=== PATIENT | female | born 1980 | race American Indian/Alaskan Native ===

== ENCOUNTER 2018-05-21 15:16 | Emergency (ER) | payer BC ==
[2018-05-21 15:16] VITALS: BMI 30.9
[2018-05-21 15:28] VITALS: TEMP 98.4; O2SAT 100
--- NOTE | 2018-05-21 16:07 | C.PDOC ---
History Of Present Illness PGY-[address] Fragoso. 37 year old female presents to ED with complaint of persistent L sided chest pain that began at 10AM today while at work. Pain is located under the left breast, rated 8-9/10, and described as burning/sharp. Pain is associated with L arm numbness and heaviness. Patient denies chest trauma, dizziness, nausea, vomiting, diaphoresis, shortness of breath, palpitations, leg swelling, recent illness, calf pain, fever, chills, recent surgeries, and oral contraceptive use. Patient took Aspirin 325mg x2 prior to arrival to ED. There are no exacerbating or relieving factors noted. PMHx: States she had abnormal thyroid blood work in the past, which has since normalized. No other PMHx. PSHx: 2009, tonsillectomy Meds: none Allergies: NKDA, +seasonal allergies Family Hx: father-, DM, CVA at 80 yo, mother-living, DM and CVA at 75 yo Social: denies tobacco, alcohol, drugs Time Seen by Provider: 05/21/18 15:30 Chief Complaint (Nursing): Chest Pain Past Medical History Vital Signs: Last Vital Signs Temp 98.4 F 05/21/18 15:20 Pulse 83 05/21/18 15:20 Resp 18 05/21/18 15:20 BP 126/87 05/21/18 15:20 Pulse Ox 100 05/21/18 15:20 Surgical History: Tonsillectomy - [facility] TONSILLECTOMY (04/19/02) Family History: States: Unknown Family Hx - Social History Hx Alcohol Use: No Hx Substance Use: No - Immunization History Hx Tetanus Toxoid Vaccination: No Hx Influenza Vaccination: No Hx Pneumococcal Vaccination: No Review Of Systems Constitutional: Negative for: Fever, Chills, Sweats, Weakness Cardiovascular: Positive for: Chest Pain. Negative for: Palpitations, Edema, Light Headedness Respiratory: Negative for: Cough, Shortness of Breath, Hemoptysis Gastrointestinal: Positive for: Constipation (chronic). Negative for: Nausea, Vomiting, Abdominal Pain, Diarrhea Genitourinary: Negative for: Dysuria, Frequency, Incontinence Musculoskeletal: Negative for: Neck Pain, Shoulder Pain, Arm Pain Neurological: Positive for: Numbness (and heaviness of L arm). Negative for: Confusion, Altered Mental Status, Headache, Dizziness Physical Exam - Physical Exam Appears: Non-toxic, No Acute Distress Skin: Normal Color, Warm, Dry, No Diaphoretic Head: Atraumatic, Normacephalic Eye(s): bilateral: Normal Inspection, PERRL, EOMI Nose: Normal, No Discharge Oral Mucosa: Moist Throat: Normal Neck: Normal, Normal ROM, Trachea Midline, No Midline Cervical Tenderness, Supple Chest: No Tenderness, No Ecchymosis, Other (No rashes) Cardiovascular: Rhythm Regular, No Edema, No Friction Rub, No Murmur, No JVD Respiratory: Normal Breath Sounds, No Decreased Breath Sounds, No Rales, No Rhon chi, No Stridor, No Wheezing Gastrointestinal/Abdominal: Normal Exam, Bowel Sounds, Soft, No Tenderness, No Guarding, No Rebound Extremity: Normal ROM, No Tenderness, No Pedal Edema, No Calf Tenderness, Capillary Refill (normal) Pulses: Left Dorsalis Pedis: Normal, Right Dorsalis Pedis: Normal Neurological/Psych: Oriented x3, Normal Speech, Normal Cranial Nerves (grossly), Normal Motor (grossly) ED Course And Treatment - Laboratory Results Result Diagrams: 05/21/18 16:05 05/21/18 16:05 O2 Sat by Pulse Oximetry: 100 Progress Note: No improvement with nitroglycerin SL. States pain is now a burning pain within her L breast. Breast exam was unremarkable. Reevaluation Time: 17:00 Reassessment Condition: Unchanged Medical Decision Making Medical Decision Making: Plan: CBC-WNL CMP-WNL Troponin-negative D-dimer <200 UDS-negative EKG- NSR, T wave inversion in v3-v6, changed from previous EKG in 2014 CXR-No active pulmonary disease (see full report) Patient signed out against medical advice after being explained risks of signing out without completing work up. Disposition - Disposition Referrals: Shree Dubois MD [Staff Provider] - Disposition: AGAINST MEDICAL ADVICE Disposition Time: 17:30 Condition: STABLE Additional Instructions: FOLLOW UP WITH YOUR DOCTOR IN 1-2 DAYS RETURN TO ER IMMEDIATELY IF YOUR SYMPTOMS WORSEN TAKE 1 ASPIRIN 81 MG DAILY Instructions: Chest Pain (DC), Leaving Against Medical Advice Forms: [employer] (Bolivian) Print Language: GREENLANDIC - Clinical Impression Clinical Impression: Chest pain, Abnormal EKG, Left against medical advice
[2018-05-21 16:20] LABS: BASO # 0.1 K/uL (0.0-0.2); BASO % 1.9 % (0.0-2.0); EOS # 0.1 K/uL (0.0-0.7); EOS % 1.4 % (0.0-4.0); HEMOGLOBIN 11.6 g/dL (11.0-16.0); MEAN CELL VOLUME 87.7 fL (81.0-99.0); MEAN CORPUSCULAR HEMOGLOBIN 29.6 pg (27.0-31.0); MEAN CORPUSCULAR HGB CONC 33.7 g/dL (33.0-37.0); MONO # 0.4 K/uL (0.0-0.8); MONO % 6.4 % (0.0-10.0); NEUT # 3.1 K/uL (1.8-7.0); NEUT % 54.3 % (50.0-75.0); RBC 3.92 Mil/uL (3.80-5.20); RED CELL DISTRIBUTION WIDTH 14.3 % (11.5-14.5); WHITE BLOOD COUNT 5.7 K/uL (4.8-10.8)
--- NOTE | 2018-05-21 16:20 | RAD ---
HISTORY: Chest pain COMPARISON: No prior. TECHNIQUE: Chest PA and lateral FINDINGS: LINES AND TUBES: None. LUNG AND PLEURA: The lungs are well inflated and clear. No pleural effusion or pneumothorax. HEART AND MEDIASTINUM: The heart is not enlarged. No aortic atherosclerotic calcification present. The hilar and mediastinal contours are within normal limits. SKELETAL STRUCTURES: The bony structures are within normal limits for the patient's age. VISUALIZED UPPER ABDOMEN: Normal. OTHER FINDINGS: None. IMPRESSION: No active pulmonary disease.
[2018-05-21 16:43] LABS: BARBITURATES, UR NEGATIVE (NEGATIVE); BENZODIAZEPINES, UR NEGATIVE (NEGATIVE); OPIATES, UR NEGATIVE (NEGATIVE); PHENCYCLIDINE, UR NEGATIVE (NEGATIVE)
[2018-05-21 16:43] LABS: ALB/GLOB RATIO 1.3 (1.0-2.1); ALBUMIN 4.3 g/dL (3.5-5.0); ALT/SGPT 34 U/L (9-52); AST/SGOT 33 U/L (14-36); BLOOD UREA NITROGEN 8 mg/dL (7-17); CALCIUM 9.5 mg/dl (8.6-10.4); GFR NON-AFRICAN AMERICAN > 60
[2018-05-21 18:06] VITALS: BP 112/74; PULSE 79; RESP 16
--- NOTE | 2018-05-23 19:54 | CARD ---
APPROVED REPORT Date of service: 05/21/2018 EKG Measurement Heart [id number] <Conclusion> Normal sinus rhythm Nonspecific T wave abnormality Abnormal ECG
== END 2018-05-21 18:25 | disposition left against medical advice (07) ==
LOC: C.ER 15:16 → UNDOADMOB 17:23 → C.9E 17:23 → C.5S 18:02 → C.9E 18:24 → C.5S 18:24 → C.ER 18:25
DX: R07.9 Chest pain, unspecified (principal); R94.31 Abnormal electrocardiogram [ECG] [EKG]
CPT/HCPCS: 71046; 80053; 84443; 84484; 84703; 85025; 85378; 99284; G0480